=== PATIENT | male | born 1995 | race Two or more races ===

== ENCOUNTER 2019-05-21 16:42 | Emergency (ER) | payer SELFPAY ==
[~2019-05-21] VITALS: Ht 165.1 cm; Wt 83.9 kg
[2019-05-21 16:44] VITALS: BP 134/65
== END 2019-05-21 16:56 | disposition home or self-care (01) ==
LOC: ER 16:44
DX: F10.129 Alcohol abuse with intoxication, unspecified (principal); Y90.9 Presence of alcohol in blood, level not specified

== ENCOUNTER 2019-12-08 10:48 | Emergency (ER) | payer SELFPAY ==
[~2019-12-08] VITALS: Ht 175.3 cm; Wt 72.6 kg
[2019-12-08 11:20] VITALS: BP 121/84
--- NOTE | 2019-12-08 12:09 | NUR ---
SEEN AND EXAMINED BY .
[2019-12-08] MEDS ORDERED: ONDANSETRON 4 MG TAB.RAPDIS ONE (12:25)
[2019-12-08] MEDS ORDERED: FAMOTIDINE (20 MG) 20 MG TABLET ONE (12:25)
--- NOTE | 2019-12-08 12:25 | NUR ---
ADDICTION RESOURCES PROVIDED.
--- NOTE | 2019-12-08 12:27 | NUR ---
Patient discharged to home in stable condition. Written and verbal after care instructions given. Patient verbalizes understanding of instruction.
[2019-12-08] MEDS ORDERED: FAMOTIDINE (20 MG) 20 MG TABLET PO ONE (12:30)
[2019-12-08] MEDS ORDERED: ONDANSETRON 4 MG TAB.RAPDIS SL ONE (12:30)
== END 2019-12-08 12:57 | disposition home or self-care (01) ==
LOC: ER 10:51
DX: K29.20 Alcoholic gastritis without bleeding (principal); F10.129 Alcohol abuse with intoxication, unspecified; Y90.9 Presence of alcohol in blood, level not specified
CPT/HCPCS: 99283; Q0162